=== PATIENT | female | born 1985 | race Caucasian/White ===

== ENCOUNTER 2016-11-02 06:16 | Inpatient (IN) | payer BC, OTHER ==
[~2016-11-02] VITALS: Ht 160 cm; Wt 61.2 kg
[2016-11-02 07:27] LABS: HEMOGLOBIN 10.8 gm/dl (12.3-15.3); RED BLOOD COUNT 3.57 M/UL (4.00-5.10); WHITE BLOOD COUNT 10.5 K/UL (4.5-11.0)
[2016-11-02] MEDS ORDERED: MODAFINIL200 MG PO (14:19)
[2016-11-02] MEDS ORDERED: ONDANSETRON ODT8 MG PO (14:21)
[2016-11-02] MEDS ORDERED: IBUPROFEN600 MG PO (14:26)
[2016-11-02] MEDS ORDERED: METHYLPHENIDATE10 MG PO (14:27)
[2016-11-02] MEDS ORDERED: TRAMADOL HCL50 MG PO (14:28)
[2016-11-02] MEDS ORDERED: ADIPEX-P37.5 MG PO (14:28)
[2016-11-02 17:19] LABS: WHITE BLOOD COUNT 9.2 K/UL (4.5-11.0)
[2016-11-02 17:22] LABS: HEMOGLOBIN 8.8 gm/dl (12.3-15.3); RED BLOOD COUNT 2.93 M/UL (4.00-5.10)
[2016-11-02 17:44] LABS: BUN/CREATININE RATIO 14 (0-10)
[2016-11-02 21:12] LABS: HEMOGLOBIN 9.2 gm/dl (12.3-15.3)
[2016-11-03 04:06] LABS: HEMOGLOBIN 8.4 gm/dl (12.3-15.3); RED BLOOD COUNT 2.78 M/UL (4.00-5.10); WHITE BLOOD COUNT 8.9 K/UL (4.5-11.0)
[2016-11-03 04:36] LABS: BUN/CREATININE RATIO 13 (0-10)
[2016-11-04 03:55] LABS: HEMOGLOBIN 7.9 gm/dl (12.3-15.3); RED BLOOD COUNT 2.58 M/UL (4.00-5.10)
[2016-11-04 03:59] LABS: WHITE BLOOD COUNT 6.5 K/UL (4.5-11.0)
[2016-11-04 04:12] LABS: BUN/CREATININE RATIO 11 (0-10)
[2016-11-05 04:11] LABS: HEMOGLOBIN 7.9 gm/dl (12.3-15.3); RED BLOOD COUNT 2.65 M/UL (4.00-5.10)
[2016-11-05 04:13] LABS: WHITE BLOOD COUNT 3.8 K/UL (4.5-11.0)
[2016-11-05 04:29] LABS: BUN/CREATININE RATIO 5 (0-10)
[2016-11-06 02:23] LABS: HEMOGLOBIN 8.7 gm/dl (12.3-15.3); WHITE BLOOD COUNT 3.1 K/UL (4.5-11.0)
[2016-11-06 02:25] LABS: RED BLOOD COUNT 2.94 M/UL (4.00-5.10)
[2016-11-06 02:52] LABS: BUN/CREATININE RATIO 6 (0-10)
[2016-11-07 07:19] LABS: HEMOGLOBIN 8.5 gm/dl (12.3-15.3); RED BLOOD COUNT 2.86 M/UL (4.00-5.10); WHITE BLOOD COUNT 4.1 K/UL (4.5-11.0)
[2016-11-07 07:41] LABS: BUN/CREATININE RATIO 8 (0-10)
[2016-11-08 06:32] LABS: RED BLOOD COUNT 3.01 M/UL (4.00-5.10); WHITE BLOOD COUNT 3.5 K/UL (4.5-11.0)
[2016-11-08 06:51] LABS: BUN/CREATININE RATIO 15 (0-10)
[2016-11-08] MEDS ORDERED: COLACE 100MG C100 MG PO (14:15)
[2016-11-08] MEDS ORDERED: TYLENOL 325MG325 MG PO (14:18)
[2016-11-08] MEDS ORDERED: CEFUROXIME500 MG PO (14:23)
[2016-11-08] MEDS ORDERED: ROCEPHIN 22 G/50 ML IV (14:24)
[2016-11-08] MEDS ORDERED: FERROUS SULFAT325 MG PO (14:27)
[2016-11-08] MEDS ORDERED: THERAGRAN TAB1 EA PO (14:30)
[2016-11-08] MEDS ORDERED: DIFLUCAN100 MG PO (14:31)
== END 2016-11-08 15:35 | disposition home or self-care (01) | DRG 872 ==
LOC: ER1 06:16 → CCU 10:06 → ZEROF 10:06 → MED SURG 4 10:06 → CCU 13:51 → MED SURG 4 11-04 17:27
PROVIDERS: Emergency Medicine; Internal Medicine Infectious Disease; ADMIT Internal Medicine
DX: A41.9 Sepsis, unspecified organism (principal); N10 Acute pyelonephritis; D61.818 Other pancytopenia; E87.1 Hypo-osmolality and hyponatremia; B96.20 Unspecified Escherichia coli [E. coli] as the cause of diseases classified elsewhere; D50.9 Iron deficiency anemia, unspecified; N30.90 Cystitis, unspecified without hematuria; F17.210 Nicotine dependence, cigarettes, uncomplicated; Z84.1 Family history of disorders of kidney and ureter; R93.5 Abnormal findings on diagnostic imaging of other abdominal regions, including retroperitoneum
CPT/HCPCS: ECHO; 36415; 71010; 76705; 80048; 80053; 81001; 82550; 82553; 82607; 82728; 82746; 83540; 83550; 83605; 83690; 83735; 83874; 84132; 84439; 84443; 84484; 84703; 85014; 85018; 85025; 85027; 85610; 85730; 87040; 87077; 87086; 87186; 93005; 93306; 96365; 96375; 99284; C9113; J0696; J1335; J1756; J1885; J2270; J2405; J2543; J2550; J7030; J7050; Q9962

== ENCOUNTER → 2016-11-09 | Outpatient (CLI) | payer OTHER ==
[~2016-11-09] MED LIST: ADIPEX-P37.5 MG PO; CEFUROXIME500 MG PO; COLACE 100MG C100 MG PO; DIFLUCAN100 MG PO; FERROUS SULFAT325 MG PO; IBUPROFEN600 MG PO; METHYLPHENIDATE10 MG PO; MODAFINIL200 MG PO; ONDANSETRON ODT8 MG PO; ROCEPHIN 22 G/50 ML IV; THERAGRAN TAB1 EA PO; TRAMADOL HCL50 MG PO; TYLENOL 325MG325 MG PO
== END ==
LOC: OPSV 13:32
DX: N12 Tubulo-interstitial nephritis, not specified as acute or chronic (principal)
CPT/HCPCS: 96365; J0696

== ENCOUNTER → 2016-11-10 | Outpatient (CLI) | payer OTHER | LOC: OPSV 08:30 | DX: N12 Tubulo-interstitial nephritis, not specified as acute or chronic (principal) | CPT/HCPCS: 96365; J0696 ==

== ENCOUNTER → 2016-11-11 | Outpatient (CLI) | payer OTHER ==
[~2016-11-11] VITALS: Ht 160 cm; Wt 59.0 kg
== END ==
LOC: OPSV 08:30
DX: N12 Tubulo-interstitial nephritis, not specified as acute or chronic (principal)
CPT/HCPCS: 96365; J0696

== ENCOUNTER → 2016-11-12 | Outpatient (CLI) | payer OTHER ==
[~2016-11-12] VITALS: Ht 160 cm; Wt 59.0 kg
[2016-11-12 17:13] LABS: RED BLOOD COUNT 3.34 M/UL (4.00-5.10); WHITE BLOOD COUNT 4.1 K/UL (4.5-11.0)
[2016-11-12 17:34] LABS: BUN/CREATININE RATIO 14 (0-10)
== END ==
LOC: OPSV 08:30
PROVIDERS: Internal Medicine Infectious Disease
DX: N12 Tubulo-interstitial nephritis, not specified as acute or chronic (principal)
CPT/HCPCS: 36415; 80053; 85025; 96365; J0696

== ENCOUNTER → 2016-11-13 | Outpatient (CLI) | payer OTHER ==
[~2016-11-13] VITALS: Ht 160 cm; Wt 59.0 kg
== END ==
LOC: OPSV 08:30
DX: N12 Tubulo-interstitial nephritis, not specified as acute or chronic (principal)
CPT/HCPCS: 96365; J0696

== ENCOUNTER 2016-12-06 13:58 | Emergency (ER) | payer OTHER ==
[2016-12-06 15:44] LABS: HEMOGLOBIN 11.9 gm/dl (12.3-15.3); RED BLOOD COUNT 3.79 M/UL (4.00-5.10); WHITE BLOOD COUNT 4.3 K/UL (4.5-11.0)
[2016-12-06 15:58] LABS: BUN/CREATININE RATIO 11 (0-10)
== END 2016-12-06 21:20 | disposition home or self-care (01) ==
LOC: ER1 13:58
PROVIDERS: Physician Assistant
DX: K59.00 Constipation, unspecified (principal); N83.201 Unspecified ovarian cyst, right side; F17.200 Nicotine dependence, unspecified, uncomplicated; Z88.1 Allergy status to other antibiotic agents; Z87.19 Personal history of other diseases of the digestive system
CPT/HCPCS: 36415; 80053; 82150; 83690; 84703; 85025; 86850; 86900; 86901; 96374; 96375; 96376; 99284; J2270; J2405; J2550; J7050; Q9962

== ENCOUNTER 2020-11-15 22:55 | Emergency (ER) | payer OTHER ==
[2020-11-16] MEDS ORDERED: ONDANSETRON ODT4 MG SL (03:16)
== END 2020-11-16 03:22 | disposition left against medical advice (07) ==
LOC: ER1 22:55
DX: M54.5 Low back pain (principal); R10.11 Right upper quadrant pain; F17.200 Nicotine dependence, unspecified, uncomplicated; D64.9 Anemia, unspecified; Z79.899 Other long term (current) drug therapy; Z88.8 Allergy status to other drugs, medicaments and biological substances; Z87.440 Personal history of urinary (tract) infections
CPT/HCPCS: 81001; 84703; 99284; J2405; Q9967